=== PATIENT | male | born 1955 | race Caucasian/White ===

== ENCOUNTER 2024-03-07 10:54 | Emergency (ER) | payer SELFPAY ==
[~2024-03-07] VITALS: Ht 170.2 cm; Wt 90.7 kg
[2024-03-07] MEDS ORDERED: HYDROmorphone HCl/Pf 1MG SYR IV ONE (11:35)
[2024-03-07 11:38] VITALS: BP 172/78
[2024-03-07] MEDS ORDERED: Norco 5-325 Ta1 EACH PO (12:31)
== END 2024-03-07 13:02 | disposition home or self-care (01) ==
LOC: ER 10:54
DX: S82.841A Displaced bimalleolar fracture of right lower leg, initial encounter for closed fracture (principal); I10 Essential (primary) hypertension; X50.1XXA Overexertion from prolonged static or awkward postures, initial encounter; Z88.5 Allergy status to narcotic agent
CPT/HCPCS: 73610; J1170

== ENCOUNTER 2024-03-16 11:07 | Day surgery (SDC) | payer SELFPAY ==
[~2024-03-16] VITALS: Ht 170.2 cm; Wt 90.9 kg
[~2024-03-16 11:07] MED LIST: Norco 5-325 Ta1 EACH PO; Ropivacaine 0.5% HCL/PF 5 MG/ML 30ML Vial ONE
[2024-03-16] MEDS ORDERED: MORP10S PR (11:40)
[2024-03-16] MEDS ORDERED: VALS80 PO (11:44)
[2024-03-16] MEDS ORDERED: Lactated Ringer's 1,000 ML IV ONE (11:51)
[2024-03-16 12:19] LABS: Albumin, Blood 3.4 g/dL (3.4-5.0); Albumin/Globulin Ratio 0.8 (0.8-1.8); Bilirubin, Total 0.7 mg/dL (0.1-1.0); Bun/Creatinine Ratio 8.8 (12.0-20.0); Creatinine, Blood 0.79 mg/dL (0.60-1.20); Globulin, Blood 4.2 g/dL (2.2-4.0); Potassium, Blood 3.9 mmol/L (3.5-5.5); Total Protein, Blood 7.6 g/dL (6.4-8.2)
[2024-03-16] MEDS ORDERED: propofoL 20 ML IV ONE (12:32)
[2024-03-16] MEDS ORDERED: Midazolam HCl 1MG / ML 2ML Vial ONE (12:33)
[2024-03-16] MEDS ORDERED: FentaNYL Citrate 50 MCG/ML 2 ML Injection ONE ×2 (12:33→14:42)
[2024-03-16] MEDS ORDERED: Dexamethasone Sod Phos 10 MG/ML 1ML VIAL ONE (12:35)
[2024-03-16] MEDS ORDERED: Ropivacaine 0.5% HCL/PF 5 MG/ML 30ML Vial ONE (12:41)
--- NOTE | 2024-03-16 13:05 | NUR ---
03/16/24 1305 Vinita Ha 1257 TIME OUT TAKE TO VERIFY CORRECT PT, PROCEDURE, LOCATION AND ALLERGIES. PT ELECTED TO PROCEED WITH BLOCK. MEDICATION PROVIDED BY CORRINA ORTIZ, CASANDRA STABLE THROUGHOUT PROCEDURE. PT TOLERATED WELL. END AT 1309
[2024-03-16] MEDS ORDERED: CeFAZolin Sodium 2,000 MG VIAL ONE (13:23)
[2024-03-16] MEDS ORDERED: NS 50 ML IV ONE (13:23)
[2024-03-16] MEDS ORDERED: ePHEDrine Sulfate 50 MG/ML 1ML Injection ONE (13:25)
--- NOTE | 2024-03-16 13:34 | NUR ---
03/16/24 1334 Jamie Coats SMALL ABRASION NOTED ON PT RIGHT 3 TOE, PRIOR TO SURGERY.
[2024-03-16 15:46] VITALS: BP 128/68
--- NOTE | 2024-03-16 16:16 | NUR ---
03/16/24 1616 Regis John LATE ENTRY: REPORT RECIEVED FROM VALE AGUSTIN RN. PT HAD BEEN GIVEN DISCHARGE INSTRUCTIONS ALREADY. QUESTIONS ENCOURAGED BY THIS RN, PT STATED NO QUESTIONS. PT TOLERATING DRINKING WITH NO ISSUES. PT DENIED PAIN. INCENTIVE SPIRAMETER SENT HOME WITH PATIENT. PT WAS ASSISTED INTO PERSONAL WHEELCHAIR WITH TWO PEOPLE ASSIST, NO ISSUES. PT APPEARED CALM AND COOPERATIVE, AND EXPRESSED APPRICIATION FOR CARES. PT DISCHARGED TO HOME WITH CAREGIVER.
== END 2024-03-16 16:08 | disposition home or self-care (01) ==
LOC: ORSCSDS 11:07
PROVIDERS: Orthopaedic Surgery
PROC: 0QSJ04Z Reposition Right Fibula with Internal Fixation Device, Open Approach (ICD-10-PCS; principal; 2024-03-16 13:15)
DX: S82.61XA Displaced fracture of lateral malleolus of right fibula, initial encounter for closed fracture (principal); W01.0XXA Fall on same level from slipping, tripping and stumbling without subsequent striking against object, initial encounter; I10 Essential (primary) hypertension; Z79.899 Other long term (current) drug therapy; Z87.891 Personal history of nicotine dependence; E66.9 Obesity, unspecified; Z68.31 Body mass index [BMI] 31.0-31.9, adult
CPT/HCPCS: 80053; 93005; 93010; C1713; J0690; J1100; J2250; J2704; J2795; J3010